=== PATIENT | female | born 1960 | race Caucasian/White ===

== ENCOUNTER 2017-07-09 00:40 | Day surgery (SDC) | payer MEDICARE ==
[~2017-07-09 00:40] MED LIST: ATOR20; CODACE30 PO; CYAN1000 PO; Calcium 600 W/1 EAC1 PO; DICL25ER PO; DIGEST ADV INT1 EACH; FOLI1 PO; GARCINIA CAMBO1 EACH PO; HYDSUL200 PO; L-LYSINE1000 MG PO; METTREX2.5 PO; Magnesium500 M1 PR; OMEP20ER PO; OXYACE5T PO; PREG50 PO; PROGESTER TD; PROP30DR BOTHEYES; PYRI100 PO; Remicade100 MG IV; TEMA30 PO; Toviaz4 MG PO
== END 2017-07-09 16:28 | disposition home or self-care (01) ==
LOC: ATC 00:40
DX: M05.79 Rheumatoid arthritis with rheumatoid factor of multiple sites without organ or systems involvement (principal)
CPT/HCPCS: 96413; 96415; J7050; Q5102-ZB

== ENCOUNTER 2017-08-18 00:22 | Day surgery (SDC) | payer MEDICARE | END 2017-08-18 11:40 | disposition home or self-care (01) | LOC: ATC 00:22 | DX: M05.79 Rheumatoid arthritis with rheumatoid factor of multiple sites without organ or systems involvement (principal) | CPT/HCPCS: 96413; 96415; J1745; J7050; Q5102-ZB ==

== ENCOUNTER 2017-11-15 00:27 | Day surgery (SDC) | payer MEDICARE | END 2017-11-15 12:15 | disposition home or self-care (01) | LOC: ATC 00:27 | DX: M05.79 Rheumatoid arthritis with rheumatoid factor of multiple sites without organ or systems involvement (principal) | CPT/HCPCS: 96413; 96415; J1745; J7050 ==

== ENCOUNTER 2018-02-07 00:08 | Day surgery (SDC) | payer MEDICARE | END 2018-02-07 11:49 | disposition home or self-care (01) | LOC: ATC 00:08 | DX: M05.79 Rheumatoid arthritis with rheumatoid factor of multiple sites without organ or systems involvement (principal) | CPT/HCPCS: 96413; 96415; J1745; J7050 ==

== ENCOUNTER 2018-06-14 00:18 | Day surgery (SDC) | payer MEDICARE | END 2018-06-14 16:50 | disposition home or self-care (01) | LOC: ATC 00:18 | DX: M05.79 Rheumatoid arthritis with rheumatoid factor of multiple sites without organ or systems involvement (principal) | CPT/HCPCS: 96413; 96415; J1745; J7050 ==

== ENCOUNTER 2018-08-15 00:37 | Day surgery (SDC) | payer MEDICARE ==
--- NOTE | 2018-08-15 09:20 | NUR ---
OR REFUSED PRE-MEDICATIONS.
== END 2018-08-15 12:09 | disposition home or self-care (01) ==
LOC: ATC 00:37
DX: M05.79 Rheumatoid arthritis with rheumatoid factor of multiple sites without organ or systems involvement (principal)
CPT/HCPCS: J1745; J7050

== ENCOUNTER 2018-12-05 00:17 | Day surgery (SDC) | payer MEDICARE | END 2018-12-05 16:20 | disposition home or self-care (01) | LOC: ATC 00:17 | DX: M05.79 Rheumatoid arthritis with rheumatoid factor of multiple sites without organ or systems involvement (principal); Z79.899 Other long term (current) drug therapy | CPT/HCPCS: 96413; 96415; J1745; J7050 ==

== ENCOUNTER 2019-01-17 00:09 | Day surgery (SDC) | payer MEDICARE | END 2019-01-17 12:02 | disposition home or self-care (01) | LOC: ATC 00:09 | DX: M05.79 Rheumatoid arthritis with rheumatoid factor of multiple sites without organ or systems involvement (principal) | CPT/HCPCS: 96413; 96415; J1745; J7050 ==

== ENCOUNTER 2019-03-01 00:04 | Day surgery (SDC) | payer MEDICARE | END 2019-03-01 11:30 | disposition home or self-care (01) | LOC: ATC 00:04 | DX: M05.79 Rheumatoid arthritis with rheumatoid factor of multiple sites without organ or systems involvement (principal) | CPT/HCPCS: 96413; 96415; J1745; J7050 ==

== ENCOUNTER 2019-06-02 00:23 | Day surgery (SDC) | payer MEDICARE | END 2019-06-02 11:42 | disposition home or self-care (01) | LOC: ATC 00:23 | DX: M05.79 Rheumatoid arthritis with rheumatoid factor of multiple sites without organ or systems involvement (principal) | CPT/HCPCS: 96413; 96415; J1745; J7050 ==

== ENCOUNTER 2019-07-14 02:00 | Day surgery (SDC) | payer MEDICARE | END 2019-07-14 11:36 | disposition home or self-care (01) | LOC: ATC 02:00 | DX: M05.79 Rheumatoid arthritis with rheumatoid factor of multiple sites without organ or systems involvement (principal); Z87.891 Personal history of nicotine dependence | CPT/HCPCS: 96413; 96415; J1745; J7050 ==

== ENCOUNTER 2019-08-25 00:26 | Day surgery (SDC) | payer MEDICARE ==
[~2019-08-25 00:26] MED LIST changes: -CODACE30 PO; -CYAN1000 PO; -L-LYSINE1000 MG PO; +L-Lysine500 M1 PO; +LUBRICATING EYE15 ML BOTHEYES; -PROP30DR BOTHEYES; +TYLECOD3; +VITAMIN B-121000 MC3 PO
== END 2019-08-25 11:50 | disposition home or self-care (01) ==
LOC: ATC 00:26
DX: M05.79 Rheumatoid arthritis with rheumatoid factor of multiple sites without organ or systems involvement (principal); Z87.891 Personal history of nicotine dependence; Z88.8 Allergy status to other drugs, medicaments and biological substances
CPT/HCPCS: J1745; J7050

== ENCOUNTER 2019-10-06 00:09 | Day surgery (SDC) | payer MEDICARE ==
--- NOTE | 2019-10-06 09:49 | NUR ---
PT DECLINES PRE MEDS
== END 2019-10-06 11:53 | disposition home or self-care (01) ==
LOC: ATC 00:09
DX: M05.79 Rheumatoid arthritis with rheumatoid factor of multiple sites without organ or systems involvement (principal); Z87.891 Personal history of nicotine dependence; Z88.8 Allergy status to other drugs, medicaments and biological substances
CPT/HCPCS: J1745; J7050

== ENCOUNTER 2020-02-09 00:34 | Day surgery (SDC) | payer MEDICARE ==
[~2020-02-09 00:34] MED LIST changes: -ATOR20; +ATOR20 PO; +CYAN500 PO; -DIGEST ADV INT1 EACH; -LUBRICATING EYE15 ML BOTHEYES; +SYSTANE BALANCE10 ML BOTHEYES; -VITAMIN B-121000 MC3 PO; +[UNRECOGNIZED DRUG - OTHER]
== END 2020-02-09 11:00 | disposition home or self-care (01) ==
LOC: ATC 00:34
DX: M05.79 Rheumatoid arthritis with rheumatoid factor of multiple sites without organ or systems involvement (principal)
CPT/HCPCS: 96413; 96415; J1745; J7050

== ENCOUNTER 2020-05-18 09:33 | Day surgery (SDC) | payer MEDICARE ==
[2020-05-18] MEDS ORDERED: OXYB5 PO (14:48)
== END 2020-05-18 22:54 | disposition home or self-care (01) ==
LOC: ATC 09:33
DX: M05.79 Rheumatoid arthritis with rheumatoid factor of multiple sites without organ or systems involvement (principal); M19.09 Primary osteoarthritis, other specified site
CPT/HCPCS: 96413; 96415; A9270; J1745; J7050

== ENCOUNTER → 2020-06-21 | Outpatient (CLI) | payer MEDICARE ==
[~2020-06-21] MED LIST changes: +OXYB5 PO
[2020-07-10 19:10] LABS: BRUSHITE 0.88 ratio (0.00-3.00); CALCIUM OXALATE 1.19 ratio (0.00-6.00); CALCIUM, URINE 121.5 mg/24 hr (100.0-300.0); CALCIUM, URINE 4.5 mg/dL (Not Estab.); CHLORIDE URINE 84 (110-250); CITRIC ACID (CITRATE) 134 mg/L (Not Estab.); CITRIC ACID(CITRATE) 362 mg/24 hr (320-1240); CREATININE, URINE 21.2 mg/dL (Not Estab.); CREATININE, URINE 572.4 mg/24 hr (800.0-1800.0); MAGNESIUM, URINE 2.3 mg/dL (Not Estab.); MONOSODIUM URATE 0.72 ratio (0.00-4.00); OSMOLALITY, URINE 183 (300-900); SODIUM, URINE 111 (39-258); SODIUM, URINE 41 mmol/L (Not Estab.); STRUVITE 0.03 ratio (0.00-1.00); URIC ACID 0.09 ratio (0.00-1.20); URINE VOLUME 2700 mL/24 hr (600-1600); URINE VOLUME (PRESERVATIVE) 2700 mL/24 hr (600-1600)
== END | disposition home or self-care (01) ==
LOC: LAB SHORT 12:00 → LAB 12:00
PROVIDERS: Urology
DX: R10.9 Unspecified abdominal pain (principal)
CPT/HCPCS: 81003; 81050; 82131; 82140; 82340; 82436; 82507; 82570; 83735; 83935; 83945; 84105; 84133; 84300; 84392; 84560

== ENCOUNTER 2020-06-28 00:07 | Day surgery (SDC) | payer MEDICARE | END 2020-06-28 11:55 | disposition home or self-care (01) | LOC: ATC 00:07 | DX: M05.9 Rheumatoid arthritis with rheumatoid factor, unspecified (principal); M19.09 Primary osteoarthritis, other specified site | CPT/HCPCS: 96413; 96415; A9270; J1745; J7050 ==

== ENCOUNTER 2020-08-05 01:02 | Day surgery (SDC) | payer MEDICARE ==
[~2020-08-05] VITALS: Wt 65.5 kg
--- NOTE | 2020-08-05 15:24 | NUR ---
PHONE MESSAGE INTO [employer] TO CALL [facility] TO DISCUSS PT'S APPOINTMENT TODAY. WHEN [employer] T[employer]ER CALLS BACK WILL INFORM THAT PT RECEIVED REMICADE OVER 1 HOUR TODAY, REMAINED POST INFUSION FOR 40 MIN AND PT HAD NO S/S OF REACTION TO THE MEDICATION.
== END 2020-08-05 10:50 | disposition home or self-care (01) ==
LOC: ATC 01:02
DX: M05.79 Rheumatoid arthritis with rheumatoid factor of multiple sites without organ or systems involvement (principal)
CPT/HCPCS: 96413; J1745; J7050

== ENCOUNTER 2020-09-18 00:17 | Day surgery (SDC) | payer MEDICARE ==
--- NOTE | 2020-09-18 08:56 | NUR ---
PT DECLINES PRE MEDS.
== END 2020-09-18 22:46 | disposition home or self-care (01) ==
LOC: ATC 00:17
DX: M05.79 Rheumatoid arthritis with rheumatoid factor of multiple sites without organ or systems involvement (principal); M47.812 Spondylosis without myelopathy or radiculopathy, cervical region
CPT/HCPCS: 96413; 96415; J1745; J7050

== ENCOUNTER 2020-10-30 04:46 | Day surgery (SDC) | payer MEDICARE ==
[~2020-10-30] VITALS: Wt 63.5 kg
== END 2020-10-30 11:18 | disposition home or self-care (01) ==
LOC: ATC 04:46
DX: M05.79 Rheumatoid arthritis with rheumatoid factor of multiple sites without organ or systems involvement (principal)
CPT/HCPCS: 96413; 96415; J1745; J7050

== ENCOUNTER 2020-12-16 00:44 | Day surgery (SDC) | payer MEDICARE | END 2020-12-16 16:25 | disposition home or self-care (01) | LOC: ATC 00:44 | DX: M05.79 Rheumatoid arthritis with rheumatoid factor of multiple sites without organ or systems involvement (principal); E78.5 Hyperlipidemia, unspecified; K21.9 Gastro-esophageal reflux disease without esophagitis | CPT/HCPCS: J1745; J7050 ==

== ENCOUNTER 2021-01-29 00:44 | Day surgery (SDC) | payer MEDICARE | END 2021-01-29 10:16 | disposition home or self-care (01) | LOC: ATC 00:44 | DX: M05.9 Rheumatoid arthritis with rheumatoid factor, unspecified (principal); E78.5 Hyperlipidemia, unspecified | CPT/HCPCS: 96413; 96415; J1745; J7050 ==

== ENCOUNTER 2021-03-12 05:19 | Day surgery (SDC) | payer MEDICARE ==
[~2021-03-12] VITALS: Wt 64.7 kg
== END 2021-03-12 11:57 | disposition home or self-care (01) ==
LOC: ATC 05:19
DX: M05.79 Rheumatoid arthritis with rheumatoid factor of multiple sites without organ or systems involvement (principal)
CPT/HCPCS: 96413; 96415; J1745; J7050

== ENCOUNTER 2021-06-09 04:12 | Day surgery (SDC) | payer MEDICARE | END 2021-06-09 12:05 | disposition home or self-care (01) | LOC: ATC 04:12 | DX: M05.79 Rheumatoid arthritis with rheumatoid factor of multiple sites without organ or systems involvement (principal); K21.9 Gastro-esophageal reflux disease without esophagitis | CPT/HCPCS: J1745; J7050 ==

== ENCOUNTER 2021-07-21 01:51 | Day surgery (SDC) | payer MEDICARE | END 2021-07-21 11:57 | disposition home or self-care (01) | LOC: ATC 01:51 | DX: M05.79 Rheumatoid arthritis with rheumatoid factor of multiple sites without organ or systems involvement (principal); L40.50 Arthropathic psoriasis, unspecified; E78.5 Hyperlipidemia, unspecified | CPT/HCPCS: J1745; J7050 ==

== ENCOUNTER 2021-08-05 08:56 | Day surgery (SDC) | payer MEDICARE ==
[~2021-08-05] VITALS: Ht 170.2 cm; Wt 62.2 kg
--- NOTE | 2021-08-05 09:55 | NUR ---
08/05/21 0955 Zainab Guy History, Chart, Medications and Allergies reviewed before start of procedure. Patient confirms NPO status and agrees with scheduled surgery. 3-LEAD EKG REVIEWED WITH PHYSICIAN PRIOR TO START OF PROCEDURE. MONITOR INTACT WITH CONTINUOUS PULSE OXIMETRY AND INTERMITTENT BP. PATIENT DETERMINED TO BE ASA APPROPRIATE FOR PROPOFOL SEDATION PRIOR TO START OF PROCEDURE BY DR. ESQUIVEL.
--- NOTE | 2021-08-05 11:07 | NUR ---
DR. TRAN CONSULTING WITH
--- NOTE | 2021-08-05 11:22 | NUR ---
Patient up to Ambulate independently. Gait steady. Discharge instructions reviewed with patient. Patient verbalizes understanding. Copy given to patient to take home. Discharged via wheelchair to private car for ride home.
== END 2021-08-05 23:56 | disposition home or self-care (01) ==
LOC: ORSCMMR 08:56 → ORSCSDS 10:00 → ORD 10:00 → ORSCMMR 23:56
PROVIDERS: Internal Medicine Gastroenterology
PROC: 0DBL8ZX Excision of Transverse Colon, Via Natural or Artificial Opening Endoscopic, Diagnostic (ICD-10-PCS; principal; 2021-08-05 10:00)
DX: Z12.11 Encounter for screening for malignant neoplasm of colon (principal); K63.5 Polyp of colon; K63.89 Other specified diseases of intestine; K64.4 Residual hemorrhoidal skin tags; Z80.0 Family history of malignant neoplasm of digestive organs; Z83.71 Family history of colonic polyps; Z79.899 Other long term (current) drug therapy
CPT/HCPCS: 88305; J2250; J2704; J7120

== ENCOUNTER 2021-09-04 00:57 | Day surgery (SDC) | payer MEDICARE | END 2021-09-04 11:23 | disposition home or self-care (01) | LOC: ATC 00:57 | DX: M05.79 Rheumatoid arthritis with rheumatoid factor of multiple sites without organ or systems involvement (principal) | CPT/HCPCS: 96413; 96415; A9270; J1745; J7050 ==

== ENCOUNTER 2021-10-16 03:00 | Day surgery (SDC) | payer MEDICARE | END 2021-10-16 11:35 | disposition home or self-care (01) | LOC: ATC 03:00 | DX: M05.79 Rheumatoid arthritis with rheumatoid factor of multiple sites without organ or systems involvement (principal) | CPT/HCPCS: 96413; 96415; J7050; Q5103 ==

== ENCOUNTER 2021-11-27 00:14 | Day surgery (SDC) | payer MEDICARE ==
[~2021-11-27] VITALS: Wt 65.0 kg
== END 2021-11-27 12:08 | disposition home or self-care (01) ==
LOC: ATC 00:14
DX: M05.79 Rheumatoid arthritis with rheumatoid factor of multiple sites without organ or systems involvement (principal)
CPT/HCPCS: 96413; 96415; J1745; J7050; Q5103

== ENCOUNTER 2022-01-15 01:22 | Day surgery (SDC) | payer MEDICARE | END 2022-01-15 11:41 | disposition home or self-care (01) | LOC: ATC 01:22 | DX: M05.79 Rheumatoid arthritis with rheumatoid factor of multiple sites without organ or systems involvement (principal) | CPT/HCPCS: 96413; 96415; J7050; Q5103 ==

== ENCOUNTER 2022-02-26 07:32 | Day surgery (SDC) | payer MEDICARE | END 2022-02-26 11:35 | disposition home or self-care (01) | LOC: ATC 07:32 | DX: M05.79 Rheumatoid arthritis with rheumatoid factor of multiple sites without organ or systems involvement (principal) | CPT/HCPCS: 96413; 96415; J7050; Q5103 ==

== ENCOUNTER → 2022-04-06 | Outpatient (CLI) | payer MEDICARE | END | disposition home or self-care (01) | LOC: LAB 08:49 → LAB SHORT 08:49 | DX: J02.9 Acute pharyngitis, unspecified (principal) | CPT/HCPCS: 87081 ==

== ENCOUNTER 2022-04-10 00:52 | Day surgery (SDC) | payer MEDICARE ==
[~2022-04-10] VITALS: Wt 67.9 kg
== END 2022-04-10 11:20 | disposition home or self-care (01) ==
LOC: ATC 00:52
DX: M05.79 Rheumatoid arthritis with rheumatoid factor of multiple sites without organ or systems involvement (principal); E78.5 Hyperlipidemia, unspecified; K27.9 Peptic ulcer, site unspecified, unspecified as acute or chronic, without hemorrhage or perforation
CPT/HCPCS: 96413; 96415; J7050; Q5103

== ENCOUNTER 2022-09-28 00:45 | Day surgery (SDC) | payer MEDICARE ==
[2022-09-28 09:24] VITALS: BP 123/57
== END 2022-09-28 12:10 | disposition home or self-care (01) ==
LOC: ATC 00:45
DX: M05.79 Rheumatoid arthritis with rheumatoid factor of multiple sites without organ or systems involvement (principal)
CPT/HCPCS: 96413; 96415; J7050; Q5103

== ENCOUNTER 2022-11-09 03:15 | Day surgery (SDC) | payer MEDICARE ==
[2022-11-09 09:03] VITALS: BP 123/73
[2022-11-09 09:47] LABS: BASOPHILS ABSOLUTE AUTO 0.07 K/mm3 (0.00-0.23); BASOPHILS PERCENT AUTO 1 % (0-2); EOSINOPHILS ABSOLUTE AUTO 0.08 K/mm3 (0.00-0.68); EOSINOPHILS PERCENT AUTO 1 % (0-6); Hematocrit 40.4 % (33.0-51.0); Hemoglobin 13.8 g/dL (11.5-16.0); IMMATURE GRAN ABSOLUTE AUTO 0.03 K/mm3 (0.00-0.10); IMMATURE GRAN PERCENT AUTO 0 % (0-1); LYMPHOCYTES ABSOLUTE AUTO 1.93 K/mm3 (0.84-5.20); LYMPHOCYTES PERCENT AUTO 26 % (21-46); MONOCYTES ABSOLUTE AUTO 0.52 K/mm3 (0.16-1.47); MONOCYTES PERCENT AUTO 7 % (4-13); Mean Corpuscular HGB 34.6 pg (26.0-34.0); Mean Corpuscular HGB Conc 34.2 g/dL (31.5-36.5); Mean Corpuscular Volume 101 fL (80-100); Mean Platelet Volume 9.3 fL (9.1-12.4); NEUTROPHILS ABSOLUTE AUTO 4.92 K/mm3 (1.96-9.15); NEUTROPHILS PERCENT AUTO 65 % (41-73); Platelet Count 253 K/mm3 (150-400); RDW Coefficient Variation 13.2 % (11.7-14.2); RDW Standard Deviation 49.7 fL (35.1-46.3); Red Blood Cell Count 3.99 M/mm3 (3.80-5.20); White Blood Cell Count 7.55 K/mm3 (4.00-11.30)
[2022-11-09 10:15] LABS: Alanine Aminotransfer (ALT/SGP 39 U/L (12-78); Albumin, Blood 3.9 g/dL (3.4-5.0); Albumin/Globulin Ratio 1.2 (0.8-1.8); Alk Phos 58 U/L (50-136); Aspartate Aminotrans (AST/SGOT 33 U/L (12-37); Bilirubin, Direct 0.1 mg/dL (0.0-0.3); Bilirubin, Indirect 0.5 mg/dL (0.1-0.7); Bilirubin, Total 0.6 mg/dL (0.1-1.0); C-REACTIVE PROTEIN, EXT RANGE <0.290 mg/dL (0.000-0.300); Creatinine, Blood 0.61 mg/dL (0.40-1.00); Globulin, Blood 3.3 g/dL (2.2-4.0); Total Protein, Blood 7.2 g/dL (6.4-8.2)
== END 2022-11-09 11:44 | disposition home or self-care (01) ==
LOC: ATC 03:15
PROVIDERS: Physician Assistant
DX: M05.79 Rheumatoid arthritis with rheumatoid factor of multiple sites without organ or systems involvement (principal); Z92.25 Personal history of immunosuppression therapy; Z79.899 Other long term (current) drug therapy; K27.9 Peptic ulcer, site unspecified, unspecified as acute or chronic, without hemorrhage or perforation
CPT/HCPCS: 36415; 80076; 82565; 85025; 85651; 86140; 96413; 96415; J7050; Q5103

== ENCOUNTER 2022-12-21 01:55 | Day surgery (SDC) | payer MEDICARE ==
[2022-12-21 09:04] VITALS: BP 137/63
== END 2022-12-21 12:10 | disposition home or self-care (01) ==
LOC: ATC 01:55
DX: M05.79 Rheumatoid arthritis with rheumatoid factor of multiple sites without organ or systems involvement (principal); K27.9 Peptic ulcer, site unspecified, unspecified as acute or chronic, without hemorrhage or perforation; Z79.1 Long term (current) use of non-steroidal anti-inflammatories (NSAID)
CPT/HCPCS: 96413; 96415; J7050; Q5103

== ENCOUNTER 2023-02-08 00:59 | Day surgery (SDC) | payer MEDICARE ==
[2023-02-08 08:36] VITALS: BP 122/80
--- NOTE | 2023-02-08 09:00 | NUR ---
PT DECLINES PRE MEDS.
[2023-02-08 09:11] LABS: BASOPHILS ABSOLUTE AUTO 0.05 K/mm3 (0.00-0.23); BASOPHILS PERCENT AUTO 1 % (0-2); EOSINOPHILS ABSOLUTE AUTO 0.12 K/mm3 (0.00-0.68); EOSINOPHILS PERCENT AUTO 2 % (0-6); Hematocrit 39.1 % (33.0-51.0); Hemoglobin 13.2 g/dL (11.5-16.0); IMMATURE GRAN ABSOLUTE AUTO 0.01 K/mm3 (0.00-0.10); IMMATURE GRAN PERCENT AUTO 0 % (0-1); LYMPHOCYTES PERCENT AUTO 38 % (21-46); MONOCYTES ABSOLUTE AUTO 0.46 K/mm3 (0.16-1.47); MONOCYTES PERCENT AUTO 9 % (4-13); Mean Corpuscular HGB 33.4 pg (26.0-34.0); Mean Corpuscular HGB Conc 33.8 g/dL (31.5-36.5); Mean Corpuscular Volume 99 fL (80-100); Mean Platelet Volume 9.3 fL (9.1-12.4); NEUTROPHILS PERCENT AUTO 50 % (41-73); Platelet Count 219 K/mm3 (150-400); RDW Coefficient Variation 12.3 % (11.7-14.2); RDW Standard Deviation 44.7 fL (35.1-46.3); Red Blood Cell Count 3.95 M/mm3 (3.80-5.20); White Blood Cell Count 5.04 K/mm3 (4.00-11.30)
[2023-02-08 09:32] LABS: Alanine Aminotransfer (ALT/SGP 33 U/L (12-78); Albumin, Blood 3.7 g/dL (3.4-5.0); Alk Phos 65 U/L (50-136); Aspartate Aminotrans (AST/SGOT 30 U/L (12-37); Bilirubin, Direct 0.1 mg/dL (0.0-0.3); Bilirubin, Indirect 0.4 mg/dL (0.1-0.7); Bilirubin, Total 0.5 mg/dL (0.1-1.0); C-REACTIVE PROTEIN, EXT RANGE <0.290 mg/dL (0.000-0.300); Creatinine, Blood 0.67 mg/dL (0.40-1.00); Globulin, Blood 3.6 g/dL (2.2-4.0); Total Protein, Blood 7.3 g/dL (6.4-8.2)
[2023-02-08] MEDS ORDERED: PROG100 PO (11:10)
[2023-02-08] MEDS ORDERED: ESTRADIOL (TWI1 EAC4 TD (11:11)
--- NOTE | 2023-02-15 15:54 | NUR ---
LATE ENTRY FOR 02/08/23 STOP TIME FOR THE INFLECTRA ON 02/08/23 IS 1145.
== END 2023-02-08 11:47 | disposition home or self-care (01) ==
LOC: ATC 00:59
PROVIDERS: Physician Assistant
DX: M05.79 Rheumatoid arthritis with rheumatoid factor of multiple sites without organ or systems involvement (principal)
CPT/HCPCS: 80076; 82565; 85025; 85651; 86140; 96413; 96415; J7050; Q5103

== ENCOUNTER 2023-03-22 03:11 | Day surgery (SDC) | payer MEDICARE ==
[~2023-03-22 03:11] MED LIST changes: +ESTRADIOL (TWI1 EAC4 TD; +PROG100 PO
[2023-03-22 08:28] VITALS: BP 148/70
== END 2023-03-22 11:10 | disposition home or self-care (01) ==
LOC: ATC 03:11
DX: M05.79 Rheumatoid arthritis with rheumatoid factor of multiple sites without organ or systems involvement (principal); K27.9 Peptic ulcer, site unspecified, unspecified as acute or chronic, without hemorrhage or perforation; M85.80 Other specified disorders of bone density and structure, unspecified site; R74.01 Elevation of levels of liver transaminase levels; Z79.1 Long term (current) use of non-steroidal anti-inflammatories (NSAID); Z79.899 Other long term (current) drug therapy
CPT/HCPCS: 96413; 96415; J7050; Q5103

== ENCOUNTER 2023-05-03 03:46 | Day surgery (SDC) | payer MEDICARE ==
[2023-05-03 13:35] VITALS: BP 135/64
[2023-05-03 14:23] LABS: BASOPHILS ABSOLUTE AUTO 0.03 K/mm3 (0.00-0.23); BASOPHILS PERCENT AUTO 1 % (0-2); EOSINOPHILS ABSOLUTE AUTO 0.06 K/mm3 (0.00-0.68); EOSINOPHILS PERCENT AUTO 1 % (0-6); Hematocrit 37.1 % (33.0-51.0); Hemoglobin 12.6 g/dL (11.5-16.0); IMMATURE GRAN ABSOLUTE AUTO 0.01 K/mm3 (0.00-0.10); IMMATURE GRAN PERCENT AUTO 0 % (0-1); LYMPHOCYTES ABSOLUTE AUTO 1.89 K/mm3 (0.84-5.20); LYMPHOCYTES PERCENT AUTO 33 % (21-46); MONOCYTES ABSOLUTE AUTO 0.45 K/mm3 (0.16-1.47); MONOCYTES PERCENT AUTO 8 % (4-13); Mean Corpuscular HGB 33.8 pg (26.0-34.0); Mean Corpuscular Volume 100 fL (80-100); Mean Platelet Volume 9.4 fL (9.1-12.4); NEUTROPHILS ABSOLUTE AUTO 3.33 K/mm3 (1.96-9.15); NEUTROPHILS PERCENT AUTO 58 % (41-73); Platelet Count 196 K/mm3 (150-400); RDW Coefficient Variation 13.4 % (11.7-14.2); RDW Standard Deviation 48.6 fL (35.1-46.3); Red Blood Cell Count 3.73 M/mm3 (3.80-5.20); White Blood Cell Count 5.77 K/mm3 (4.00-11.30)
[2023-05-03 14:52] LABS: C-REACTIVE PROTEIN, EXT RANGE <0.290 mg/dL (0.000-0.300)
[2023-05-03 14:55] LABS: Alanine Aminotransfer (ALT/SGP 34 U/L (12-78); Albumin, Blood 3.9 g/dL (3.4-5.0); Albumin/Globulin Ratio 1.3 (0.8-1.8); Alk Phos 57 U/L (50-136); Aspartate Aminotrans (AST/SGOT 29 U/L (12-37); Bilirubin, Direct 0.2 mg/dL (0.0-0.3); Bilirubin, Indirect 0.4 mg/dL (0.1-0.7); Bilirubin, Total 0.6 mg/dL (0.1-1.0); Globulin, Blood 3.1 g/dL (2.2-4.0)
== END 2023-05-03 16:27 | disposition home or self-care (01) ==
LOC: ATC 03:46
PROVIDERS: Physician Assistant
DX: M05.79 Rheumatoid arthritis with rheumatoid factor of multiple sites without organ or systems involvement (principal); K27.9 Peptic ulcer, site unspecified, unspecified as acute or chronic, without hemorrhage or perforation
CPT/HCPCS: 80076; 82565; 85025; 85651; 86140; 96413; 96415; J7050; Q5103

== ENCOUNTER 2023-06-14 03:22 | Day surgery (SDC) | payer MEDICARE ==
[2023-06-14 09:22] VITALS: BP 129/62
== END 2023-06-14 12:20 | disposition home or self-care (01) ==
LOC: ATC 03:22
DX: M05.79 Rheumatoid arthritis with rheumatoid factor of multiple sites without organ or systems involvement (principal)
CPT/HCPCS: 96413; 96415; J7050; Q5103

== ENCOUNTER 2024-02-17 02:31 | Day surgery (SDC) | payer MEDICARE ==
[~2024-02-17] VITALS: Wt 64.2 kg
[2024-02-17] MEDS ORDERED: Infliximab-DYYB 300 MG in NS 250 ML IV SCH (06:00)
[2024-02-17] MEDS ORDERED: Loratadine 10 MG Tab PO SCH (07:10)
[2024-02-17] MEDS ORDERED: Acetaminophen 325 MG TABLET PO PRN (07:10)
[2024-02-17 08:15] VITALS: BP 110/52
== END 2024-02-17 11:07 | disposition home or self-care (01) ==
LOC: ATC 02:31
DX: M05.9 Rheumatoid arthritis with rheumatoid factor, unspecified (principal); E78.5 Hyperlipidemia, unspecified
CPT/HCPCS: 96413; 96415; J7050; Q5103

== ENCOUNTER 2024-03-30 01:52 | Day surgery (SDC) | payer MEDICARE ==
[2024-03-30] MEDS ORDERED: Infliximab-DYYB 300 MG in NS 250 ML IV SCH (06:00)
[2024-03-30] MEDS ORDERED: Acetaminophen 325 MG TABLET PO PRN (07:00)
[2024-03-30] MEDS ORDERED: Loratadine 10 MG Tab PO SCH (07:00)
[2024-03-30 09:11] VITALS: BP 106/58
== END 2024-03-30 12:24 | disposition home or self-care (01) ==
LOC: ATC 01:52
DX: M05.9 Rheumatoid arthritis with rheumatoid factor, unspecified (principal); D84.9 Immunodeficiency, unspecified; E78.5 Hyperlipidemia, unspecified; M85.80 Other specified disorders of bone density and structure, unspecified site; K27.9 Peptic ulcer, site unspecified, unspecified as acute or chronic, without hemorrhage or perforation; M79.7 Fibromyalgia; Z88.8 Allergy status to other drugs, medicaments and biological substances
CPT/HCPCS: 96413; 96415; J7050; Q5103

== ENCOUNTER 2024-05-11 02:41 | Day surgery (SDC) | payer MEDICARE ==
[~2024-05-11] VITALS: Wt 64.1 kg
[~2024-05-11 02:41] MED LIST changes: +Infliximab-DYYB 300 MG in NS 250 ML IV SCH
[2024-05-11] MEDS ORDERED: Acetaminophen 325 MG TABLET PO PRN (07:25)
[2024-05-11] MEDS ORDERED: Loratadine 10 MG Tab PO SCH (07:25)
[2024-05-11 09:10] VITALS: BP 134/65
== END 2024-05-11 11:44 | disposition home or self-care (01) ==
LOC: ATC 02:41
DX: M05.9 Rheumatoid arthritis with rheumatoid factor, unspecified (principal); E78.5 Hyperlipidemia, unspecified
CPT/HCPCS: 96413; 96415; J7050; Q5103

== ENCOUNTER 2024-06-22 04:56 | Day surgery (SDC) | payer MEDICARE ==
[~2024-06-22] VITALS: Wt 64.7 kg
[~2024-06-22 04:56] MED LIST changes: -Infliximab-DYYB 300 MG in NS 250 ML IV SCH
[2024-06-22] MEDS ORDERED: Infliximab-DYYB 300 MG in NS 250 ML IV SCH (06:00)
[2024-06-22] MEDS ORDERED: Acetaminophen 325 MG TABLET PO SCH (07:05)
[2024-06-22] MEDS ORDERED: Loratadine 10 MG Tab PO SCH (07:05)
[2024-06-22 14:00] VITALS: BP 123/66
== END 2024-06-22 16:52 | disposition home or self-care (01) ==
LOC: ATC 04:56
DX: M05.79 Rheumatoid arthritis with rheumatoid factor of multiple sites without organ or systems involvement (principal); E78.5 Hyperlipidemia, unspecified
CPT/HCPCS: 96413; 96415; J7050; Q5103

== ENCOUNTER 2024-08-17 01:04 | Day surgery (SDC) | payer MEDICARE ==
[2024-08-17] MEDS ORDERED: Infliximab-DYYB 300 MG in NS 250 ML IV SCH (06:00)
[2024-08-17 13:49] VITALS: BP 129/66
== END 2024-08-17 16:46 | disposition home or self-care (01) ==
LOC: ATC 01:04
DX: M05.79 Rheumatoid arthritis with rheumatoid factor of multiple sites without organ or systems involvement (principal); E78.5 Hyperlipidemia, unspecified
CPT/HCPCS: 96413; 96415; J7050; Q5103

== ENCOUNTER 2024-09-28 01:28 | Day surgery (SDC) | payer MEDICARE ==
[2024-09-28] MEDS ORDERED: Infliximab-DYYB 300 MG in NS 250 ML IV SCH (06:00)
[2024-09-28 08:50] VITALS: BP 131/65
== END 2024-09-28 11:30 | disposition home or self-care (01) ==
LOC: ATC 01:28
DX: M05.79 Rheumatoid arthritis with rheumatoid factor of multiple sites without organ or systems involvement (principal); E78.5 Hyperlipidemia, unspecified; Z79.899 Other long term (current) drug therapy
CPT/HCPCS: 96413; 96415; J7050; Q5103

== ENCOUNTER 2024-11-09 00:34 | Day surgery (SDC) | payer MEDICARE ==
[2024-11-09] MEDS ORDERED: Infliximab-DYYB 300 MG in NS 250 ML IV SCH (06:00)
[2024-11-09 13:15] VITALS: BP 113/69
== END 2024-11-09 16:07 | disposition home or self-care (01) ==
LOC: ATC 00:34
DX: M05.79 Rheumatoid arthritis with rheumatoid factor of multiple sites without organ or systems involvement (principal); E78.5 Hyperlipidemia, unspecified; Z79.899 Other long term (current) drug therapy
CPT/HCPCS: 96413; 96415; J7050; Q5103

== ENCOUNTER 2024-12-21 03:03 | Day surgery (SDC) | payer MEDICARE ==
[2024-12-21 14:04] VITALS: BP 109/58
== END 2024-12-21 16:55 | disposition home or self-care (01) ==
LOC: ATC 03:03
DX: M05.79 Rheumatoid arthritis with rheumatoid factor of multiple sites without organ or systems involvement (principal); E78.5 Hyperlipidemia, unspecified; M85.80 Other specified disorders of bone density and structure, unspecified site; I73.00 Raynaud's syndrome without gangrene; Z79.899 Other long term (current) drug therapy
CPT/HCPCS: 96413; 96415; J7050; Q5103

== ENCOUNTER 2025-02-06 02:11 | Day surgery (SDC) | payer MEDICARE ==
[2025-02-06 14:55] VITALS: BP 123/66
== END 2025-02-06 17:50 | disposition home or self-care (01) ==
LOC: ATC 02:11
DX: M05.79 Rheumatoid arthritis with rheumatoid factor of multiple sites without organ or systems involvement (principal); K27.9 Peptic ulcer, site unspecified, unspecified as acute or chronic, without hemorrhage or perforation; I73.00 Raynaud's syndrome without gangrene; M85.80 Other specified disorders of bone density and structure, unspecified site; D84.9 Immunodeficiency, unspecified
CPT/HCPCS: 96413; 96415; J7050; Q5103

== ENCOUNTER 2025-03-22 00:04 | Day surgery (SDC) | payer MEDICARE ==
[2025-03-22 08:57] VITALS: BP 127/58
== END 2025-03-22 11:29 | disposition home or self-care (01) ==
LOC: ATC 00:04
DX: M05.79 Rheumatoid arthritis with rheumatoid factor of multiple sites without organ or systems involvement (principal); I73.00 Raynaud's syndrome without gangrene; M85.80 Other specified disorders of bone density and structure, unspecified site; R91.8 Other nonspecific abnormal finding of lung field
CPT/HCPCS: 96413; 96415; J7050; Q5103

== ENCOUNTER 2025-05-03 02:17 | Day surgery (SDC) | payer MEDICARE ==
[~2025-05-03] VITALS: Wt 62.5 kg
[2025-05-03 08:45] VITALS: BP 126/61
== END 2025-05-03 11:20 | disposition home or self-care (01) ==
LOC: ATC 02:17
DX: M05.79 Rheumatoid arthritis with rheumatoid factor of multiple sites without organ or systems involvement (principal); I73.00 Raynaud's syndrome without gangrene; M85.80 Other specified disorders of bone density and structure, unspecified site; Z79.631 Long term (current) use of antimetabolite agent; Z96.642 Presence of left artificial hip joint
CPT/HCPCS: 96413; 96415; 99211; J7050; Q5103